=== PATIENT | male | born 1980 | race Two or more races ===

== ENCOUNTER 2020-09-06 19:01 | Emergency (ER) | payer BC ==
[~2020-09-06] VITALS: Ht 170.2 cm; Wt 94.4 kg
--- NOTE | 2020-09-06 19:38 | NUR ---
"ON SUNDAY MY NERVE PAIN STARTED HURTING REALLY BAD. ITS IN MY BUTT CHECK AND DOWN LEFT LEG"
[2020-09-06] MEDS ORDERED: KETOROLAC 30 MG/1 ML ONE (20:37)
[2020-09-06] MEDS ORDERED: DIAZEPAM 5 MG TABLET ONE (20:37)
[2020-09-06 20:42] VITALS: BP 154/93
--- NOTE | 2020-09-06 20:46 | NUR ---
JEFF RN: PT MEDICATED FOR PAIN GOING DOWN HIS LEFT LEG. VS STABLE. FAMILY AT BESIDE. NO ACUTE DISTRESS NOTED. CALL LIGHT IN PLACE.
[2020-09-06] MEDS ORDERED: DIAZEPAM 5 MG TABLET PO ONE (21:00)
[2020-09-06] MEDS ORDERED: KETOROLAC 30 MG/1 ML IM ONE (21:00)
--- NOTE | 2020-09-06 21:49 | NUR ---
pt medicated per md orders and statesthat he is ok for discharge
== END 2020-09-06 22:19 | disposition home or self-care (01) ==
LOC: ED 22:00
DX: M54.32 Sciatica, left side (principal); M79.662 Pain in left lower leg
CPT/HCPCS: 96372; 99283; J1885; J7512